=== PATIENT | female | born 1955 | race Caucasian/White ===

== ENCOUNTER → 2016-08-05 | Outpatient (CLI) | payer OTHER ==
--- NOTE | 2016-08-05 17:12 | US ---
Right Breast Ultrasound Indication: Palpable lump outer right breast. Due for screening mammography. Technique: The outer right breast was scanned with a high-resolution linear transducer by the sonogra pher and ct. Correlation made with mammograms and targeted physical exam. Findings: A benign well circumscribed 4 mm cyst in the outer right breast 9:30 position 2 cm from the nipple corresponds to the palpable lump and the partially obscured nodular asymmetry on the mammogra ms. No underlying mass or architectural distortion. Impression: Palpable lump corresponds to a benign 4 mm cyst in the outer right breast. BI-RADS 2: Benign finding. Recommendation: Clinical follow-up. Routine mammographic screening due in July 2017. The negative results and recommendations were discussed with the patient at time of study completion.
--- NOTE | 2016-08-06 09:20 | MA ---
Bilateral Digital Diagnostic Mammogram, with Tomosynthesis Indication: Palpable lump outer right breast. Technique: Bilateral 2D CC and true lateral views of the right breast. Bilateral digital breast vega osynthesis was performed in the MLO projection, with reconstruction at 1.0-mm slice thickness and com posite MLO views reconstructed. This examination is processed by the [facility] computer aided detection s ystem. Comparison: May 2012, May 2011, and April 2010. Breast Density: Type C. Findings: CAD was reviewed. A 4-mm partially obscured nodular asymmetry present in the outer right breast 9 o'clock position in the region of the palpable abnormality. The right and left mammograms a re otherwise negative. Impressions 1. A 4-mm nodular asymmetry outer right breast. 2. BI-RADS 0: Needs additional imaging evaluation. Recommendation: Proceed with right breast ultrasound today to optimally characterize palpable lump a nd nodular asymmetry. [facility] will send a result letter to the patient. The patient's information is entered into a reminder system with a target due date for her next mammo gram. E:elizabeth
== END ==
LOC: FIMAGING 13:58
PROVIDERS: ATTEND Naturopath
DX: Z12.39 Encounter for other screening for malignant neoplasm of breast (principal); N60.01 Solitary cyst of right breast
CPT/HCPCS: G0204; G0279

== ENCOUNTER 2016-09-09 07:13 | Day surgery (SDC) | payer OTHER ==
[2016-09-09] MEDS ORDERED: PROPOFOL/EMULSION 500 MG/50 ML BOTTLE IV ONE (08:51)
--- NOTE | 2016-09-09 10:03 | GPN ---
[f rep st] PROCEDURE NOTE PREPROCEDURE DIAGNOSIS: History of colon polyps. POSTPROCEDURE DIAGNOSIS: Poor preparation. PROCEDURE PERFORMED: Colonoscopy including terminal ileum. MEDICATIONS: Monitored anesthesia care. INDICATIONS: The patient is a 61-year-old female with a history of tubulovillous adenoma, polyp vanessa t was small, however 3-year colonoscopy followup for surveillance was recommended. She is here for her 3-year surveillance colonoscopy. The risks and benefits of the procedure were discussed with e patient. Consent obtained. Risks include not limited to, bleeding, perforation, risks associated with sedation. The patient is ASA class 2. PROCEDURE: The pediatric colonoscope was advanced into the terminal ileum which appeared normal. T here was stool throughout the entire colon more on the right side of the colon precluding visualizat ion of the colonic wall. Approximately 30% of the colon wall was not visualized. No polyps were se en. Retroflexed views in the rectum were normal. IMPRESSION: Poor colonoscopy preparation. Inability to visualize polyps less than 1 cm in size. T he base of the cecum could not be visualized at all secondary to stool. RECOMMENDATIONS: 1. Discharge home with escort. 2. Advance diet as tolerated. 3. Repeat surveillance colonoscopy recommended at the next available appointment with more extensiv e bowel preparation. I will review her bowel preparation. If she took the MiraLAX prep, we can giv e her GoLYTELY prep. If she took a Suprep or GoLYTELY prep, she will need a 2-day prep. Thank you for allowing me to participate in the care of your patient. Please do not hesitate to jarrett schafer with questions. /[id number]/MODL
== END 2016-09-09 10:40 | disposition home or self-care (01) ==
LOC: FSGY 07:13
PROVIDERS: ATTEND Internal Medicine Gastroenterology
PROC: 0DJD8ZZ Inspection of Lower Intestinal Tract, Via Natural or Artificial Opening Endoscopic (ICD-10-PCS; principal; 2016-09-09 08:45)
DX: Z12.11 Encounter for screening for malignant neoplasm of colon (principal)
CPT/HCPCS: J2704

== ENCOUNTER → 2016-10-13 | Outpatient (CLI) | payer OTHER | LOC: FIMAGING 15:57 | PROVIDERS: ATTEND Naturopath | DX: R20.2 Paresthesia of skin (principal); R51 Headache; R41.82 Altered mental status, unspecified; R93.0 Abnormal findings on diagnostic imaging of skull and head, not elsewhere classified; J32.9 Chronic sinusitis, unspecified ==

== ENCOUNTER → 2016-10-22 | Outpatient (CLI) | payer OTHER | LOC: FIMAGING 13:33 | PROVIDERS: ATTEND Naturopath | DX: R93.8 Abnormal findings on diagnostic imaging of other specified body structures (principal); N84.0 Polyp of corpus uteri ==

== ENCOUNTER 2016-10-28 07:44 | Day surgery (SDC) | payer OTHER ==
[2016-10-28] MEDS ORDERED: PROPOFOL/EMULSION 500 MG/50 ML BOTTLE IV ONE (09:30)
--- NOTE | 2016-10-28 10:18 | GOP ---
[f rep st] OPERATIVE REPORT DATE OF OPERATION: SURGEON: Nico Eldridge MD ANESTHESIA: Monitored anesthesia care. PREOPERATIVE DIAGNOSIS: Poor colon prep, history of colon polyps. POSTOPERATIVE DIAGNOSIS: Colon polyps, status post removal. PROCEDURE PERFORMED: FINDINGS: INDICATIONS: The patient is a 61-year-old female, with a history of prior tubulovillous adenoma, wh ich was removed, here for a colonoscopy. She recently had a poor prep colonoscopy, this is a repeat surveillance colonoscopy. The risks and benefits of the procedure are discussed with the patient, consent obtained. Risks include, but not limited to, bleeding, perforation, risks associated with s edation. The patient is ASA class 2. DESCRIPTION OF PROCEDURE: PROCEDURE: Colonoscopy with snare polypectomy. PROCEDURE: The adult colonoscope was advanced to the terminal ileum, which appeared normal. The il eocecal valve, appendiceal orifice and cecum appeared normal. There is scattered melanosis coli thr oughout the right colon. A 7 mm polyp was removed from the ascending colon with cold snare polypect valente. The polyp was flat. The polyp was removed in 1 piece. The hepatic flexure, transverse colon, splenic flexure, descending colon, sigmoid colon, and rectum were normal. Retroflexed views in the rectum were normal. IMPRESSION: 1. Melanosis coli. 2. Ascending colon polyp, status post removal using cold snare polypectomy. RECOMMENDATIONS: 1. Discharged home with escort. 2. Advance diet as tolerated. 3. Followup the final pathology results, results available within 10 days. 4. Repeat colonoscopy in 5 years given history of tubovillous adenoma 3 years ago, and polyp remove d today. 5. Continue current medications. Thank you for allowing me to participate in the care of your patient. Please do not hesitate to jarrett hanh with questions. /[id number]/MODL
== END 2016-10-28 10:53 | disposition home or self-care (01) ==
LOC: FSGY 07:44
PROVIDERS: ATTEND Internal Medicine Gastroenterology
PROC: 0DBK8ZX Excision of Ascending Colon, Via Natural or Artificial Opening Endoscopic, Diagnostic (ICD-10-PCS; principal; 2016-10-28 09:30)
DX: Z86.010 Personal history of colon polyps (principal); D12.2 Benign neoplasm of ascending colon; K63.89 Other specified diseases of intestine
CPT/HCPCS: J2704

== ENCOUNTER 2016-11-18 06:21 | Day surgery (SDC) | payer OTHER ==
[2016-11-18] MEDS ORDERED: LIDOCAINE 1% 2 ML INJ ONE (06:49)
[2016-11-18] MEDS ORDERED: LR 1,000 ML IV ONE (07:06)
[2016-11-18] MEDS ORDERED: LIDOCAINE 1% 5 ML SDV ID PRN (07:06)
[2016-11-18] MEDS ORDERED: LIDO/EPI 1% **for epidural** 30 ML SDV ONE (07:18)
[2016-11-18] MEDS ORDERED: fentaNYL 100 MCG/2 ML INJ ONE ×2 (08:08→08:59)
[2016-11-18] MEDS ORDERED: LIDOCAINE 2% 5 ML SDV ONE (08:09)
[2016-11-18] MEDS ORDERED: PROPOFOL/EMULSION 500 MG/50 ML BOTTLE IV ONE (08:09)
[2016-11-18] MEDS ORDERED: DEXAMETHASONE 4 MG/ML VIAL ONE (08:15)
[2016-11-18] MEDS ORDERED: KETOROLAC 30 MG/1 ML SDV ONE (08:46)
--- NOTE | 2016-11-18 10:55 | GOP ---
[f rep st] OPERATIVE REPORT DATE OF OPERATION: 11/18/2016 SURGEON: Amber Hidalgo MD ANESTHESIA: General with LMA. ANESTHESIOLOGIST: Paola Shah MD. PREOPERATIVE DIAGNOSIS: 1. Postmenopausal bleeding. 2. Thickened endometrial stripe, suggestive of endometrial polyp. POSTOPERATIVE DIAGNOSIS: 1. Postmenopausal bleeding. 2. Thickened endometrial stripe, suggestive of endometrial polyp. PROCEDURE PERFORMED: Hysteroscopic polypectomy. FINDINGS: Very large endometrial polyp, probably about 1.5 to 2 cm. Otherwise, normal tubal ostia, normal endometrium, and normal cervix. ESTIMATED BLOOD LOSS: Minimal. INDICATIONS: The patient is a 61-year-old, referred by Dr. Shila Lu for postmenopausal bleed ing and thickened endometrial stripe. She is on bioidentical hormone therapy and has recently had h er estrogen amount increased. Needs hysteroscopic evaluation for further evaluation of thickened en dometrium and postmenopausal bleeding. DESCRIPTION OF PROCEDURE: With informed consent signed, patient taken to the operating room, placed under general anesthesia, placed in low dorsal lithotomy position, prepped and draped in the usual sterile fashion. Bladder previously emptied. Tenaculum placed on the anterior lip of the cervix, c ervix dilated to 9.5 mm, and hysteroscope placed, using normal saline as the filling medium. Findin gs as noted above. Menjivar [employer] Tru[employer] morcellator placed into the hysteroscope and resection of the noted polyp done without complication. It did appear to arise from the left side of the pos terior wall of the fundus. Once it was completely resected, the hysteroscope was removed. Net flui d deficit was 200 cc. The patient was placed in supine position, awakened in the operating room, ta kristyn to the recovery room in stable condition. Tolerated procedure well. COMPLICATIONS: None. Copy requested to: Shila Lu /[id number]/MODL
== END 2016-11-18 10:40 | disposition home or self-care (01) ==
LOC: FSGY 06:21
PROVIDERS: ATTEND Obstetrics & Gynecology Gynecology
PROC: 0UB98ZX Excision of Uterus, Via Natural or Artificial Opening Endoscopic, Diagnostic (ICD-10-PCS; principal; 2016-11-18 08:15)
DX: N95.0 Postmenopausal bleeding (principal); N84.0 Polyp of corpus uteri
CPT/HCPCS: 58558; C1782; J1100; J1885; J2704; J3010

== ENCOUNTER 2018-07-06 11:32 | Emergency (ER) | payer OTHER ==
[2018-07-06 12:31] LABS: PLATELET COUNT 234 10^3/uL (150-400)
[2018-07-06] MEDS ORDERED: ONDANSETRON 4 MG/2 ML VIAL IVP ONE (12:46)
[2018-07-06] MEDS ORDERED: ONDANSETRON 4 MG/2 ML VIAL ONE (12:47)
--- NOTE | 2018-07-06 13:12 | EDPHY ---
HPI/HX/ROS/PE/MDM Narrative: CLINICAL IMPRESSION: Closed head injury, headache, episodic lightheadedness, dizziness ASSESSMENT/PLAN: 63-year-old female with no reported past medical history presents to the emergency department after she had a presumed syncopal episode at 4:00 a.m. This morning striking her head on a hardwood floor. Patient presents to the ED with complaints of headache, episodic lightheadedness and dizziness. She has no current complaints of vertigo nausea, vomiting, upper extremity radiculopathy , seizure activity, back or chest wall pain. She is complaining of anterior neck pain. CT head and cervical spine negative for acute intracranial bleeding or fracture. Degenerative changes noted. Given her reports of mild"spinning" at onset of symptoms and persistent dizziness, case was discussed with Dr. Akhtar and CTA head and neck were obtained. These were read by Radiology as negative for acute abnormality, vertebral artery dissection or thrombus. Patient received IV Reglan, and Benadryl for her headache, required 2nd dose of Benadryl and Ativan for mild tremors and anxiety. On reassessment she was improved, she had a normal initial and repeat neurological exam with no limb ataxia or abnormal cerebellar findings. 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 DIFFERENTIAL DX: Differential diagnosis for headache includes but not limited to syncope, ACS, electrolyte imbalance, metabolic disturbance, subarachnoid hemorrhage, migraine headache, migraine variant headache, tension headache and infectious causes such as meningitis, pharyngitis and sinusitis. ED PROCEDURES: See imaging and lab results below ED COURSE: 1:10 p.m.: Discussed with radiologist Dr. La. No acute bleeding or fracture identified on CT head and cervical spine. She has central canal narrowing at C5-6 likely secondary to DJD. EKG reviewed with Dr. Akhtar. Normal sinus rhythm, no acute ST or T-wave changes. Labs show no evidence of electrolyte imbalance, severe dehydration, metabolic disturbance, normal troponin. 1:20 p.m.: CT results discussed with the patient and her significant other. She states she continues to have a headache. Repeat cerebellar functions continued to be normal. Patient states that she was woken from sleep at 4:00 a.m. Feeling dizzy as though she was going to pass out and thought she was dehydrated which prompted her to get up to get water. She continues to feel dizzy and off balance 2:20 p.m.: CTA results discussed with Radiology, mild narrowing of bilateral distal vertebral arteries with no evidence of dissection or thrombus. Results reviewed with patient. She is feeling anxious and jittery from Reglan, additional Benadryl and small amount of Ativan ordered. 3:00 p.m.: Patient reassessed after IV analgesics and she is feeling improved. Less tremulous. Able to road test with steady gait. Will plan to discharge home with PCP follow-up. 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 CHIEF COMPLAINT: Closed head injury, possible syncope HPI: 63-year-old female with no reported past medical history presents to the emergency department with her significant other after she had a possible syncopal episode at 4:00 a.m. This morning. Patient reports he was lying in bed , was woken by feeling dizzy and lightheaded and thought she was dehydrated. She got out of bed, attempted to walk to the kitchen to get a glass of water and the next thing she knew she was on the ground. Her significant other awoke immediately and states the patient was awake when he got to her. She remembers feeling like she was lightheaded in going to pass out. She went back to bed, applied ice to her head, but when she had a persistent headache she came to the ED. She normally does not struggle with migraines or chronic headaches. She states when she 1st fell symptoms in bed this morning she had some spinning sensations but she now complains only of being off balance. No associated vision changes or hearing changes. No nausea or vomiting. No seizure activity. She is complaining of neck pain but does not want a C-collar placed and denies upper extremity numbness or weakness. She reports her neck pain feels"like someone is squeezing my neck". No prior neck injury or surgery, recent chiropractic adjustment or massage therapy. She took 3 ibuprofen prior to arrival PMH: None reported Pertinent Past Surgical History: None reported Family History: None reported Social History: nonsmoker REVIEW OF SYSTEMS: All other systems negative Constitutional: No fever, no chills, appetite change. Eyes: No discharge, vision change ENT: No sore throat, congestion, ear pain. Cardiovascular: No chest pain, no palpitations. Respiratory: No cough, no shortness of breath. Gastrointestinal: No abdominal pain, no vomiting, diarrhea. Genitourinary: No hematuria, dysuria, flank pain, pelvic pain Musculoskeletal: No back pain, positive for neck pain, no joint swelling, joint pain, myalgias. Skin: No rashes, color change. Neurological: [Positive for headache, dizziness, PHYSICAL EXAM: General Appearance: Alert, oriented, appropriate, cooperative, NAD, well hydrated, non-toxic appearing, very thin, VSS, no hypoxia, vital signs stable HEENT: TMs are clear bilaterally no perforation or FB, no injection, no evidence of serous or mucopurulent otitis. No hemotympanum or Becerra sign, no palpable scalp hematoma, contusion or laceration. Oropharynx clear is no erythema or exudates, no tonsillar hypertrophy or asymmetry. Dentition without abnormality. Eyes: PERRLA, no acute vision change, nystagmus, swelling, discharge, pain or photosensitivity. Conjunctiva pink, no pallor or injection Neck: Supple, nontender, no lymphadenopathy, no midline pain, FROM, no meningismus, pain to anterior SCM muscle, right greater than left. Respiratory: There are no retractions, lungs are clear to auscultation. No chest wall or rib pain Cardiac: Regular rate and rhythm, no murmurs or gallops. Gastrointestinal: Abdomen is soft, nontender, bowel sounds normal, no masses/ hernia, no rigidity, guarding or focal peritoneal findings. Neurological: Alert and oriented x 3, CN 2-12 grossly intact, no limb ataxia, NIH score of 0, DTR's intact, normal sensation and strength Skin: Warm, dry, no rashes, no nodules on palpation. Musculoskeletal: Extremities are symmetrical, full range of motion, no tenderness, deformity, swelling, or erythema. Psychiatric: Patient is oriented X 3, there is no agitation. MEDICAL DECISION MAKING: Patient was seen independently. Secondary supervising physician at time of evaluation was Dr. Akhtar. Diagnosis: Closed head injury, episodic lightheadedness, dizziness, headache. New, requires workup Summary: See Assessment and Plan for summary of ED visit Clinical lab tests: ordered / reviewed. Independent visualization of images, tracing, or specimens: Yes. Decision to obtain medical records or history from someone other than the patient: Patient's significant other Discussed patient with another provider: Dr. Akhtar, radiology Patient Progress: Improved. (Jose Lira) MDM: The patient was evaluated and managed by the Physician Assistant Press Operator Offset. I discussed the patient's presentation and course with the physician assistant professor sculpture and agree with the evaluation. My co-signature indicates that I have reviewed this chart and I agree with the findings and plan of care as documented. I am the secondary supervising physician. (Rashida Akhtar) - Data Points Laboratory Results: Laboratory Results 07/06/18 11:50 07/06/18 11:50 Medications Given: Discontinued Medications Diphenhydramine HCl (Benadryl Injection) 25 mg IVP EDNOW ONE Stop: 07/06/18 13:41 Last Admin: 07/06/18 14:00 Dose: 25 mg Diphenhydramine HCl (Benadryl Injection) 25 mg IVP EDNOW ONE Stop: 07/06/18 14:26 Last Admin: 07/06/18 14:35 Dose: Not Given Sodium Chloride (Ns) 1,000 mls @ 0 mls/hr IV ONCE ONE; Wide Open PRN Reason: Protocol Stop: 07/06/18 13:41 Last Admin: 07/06/18 14:02 Dose: 1,000 mls Lorazepam (Ativan Injection) 0.5 mg IVP EDNOW ONE Stop: 07/06/18 14:27 Last Admin: 07/06/18 14:34 Dose: 0.5 mg Meclizine HCl (Meclizine Hcl) 25 mg PO ONCE ONE Stop: 07/06/18 13:41 Last Admin: 07/06/18 14:01 Dose: 25 mg Metoclopramide HCl (Reglan Injection) 10 mg IVP EDNOW ONE Stop: 07/06/18 13:41 Last Admin: 07/06/18 13:59 Dose: 10 mg Ondansetron HCl (Zofran) 4 mg IVP EDNOW ONE Stop: 07/06/18 12:47 Last Admin: 07/06/18 12:49 Dose: 4 mg Point of Care Test Results: Chemistry 07/06/18 11:55 POC Troponin I 0.01 ng/mL ng/mL (0.00-0.08) General Time Seen by Provider: 07/06/18 11:53 Initial Vital Signs: Initial Vital Signs Temperature (C) 36.3 C 07/06/18 11:36 Heart Rate 72 07/06/18 11:36 Respiratory Rate 17 07/06/18 11:36 Blood Pressure 118/75 07/06/18 11:36 O2 Sat (%) 98 07/06/18 11:36 O2 Delivery Mode Room Air Allergies/Adverse Reactions: lactose Allergy (Verified 07/06/18 11:33) Abdominal Cramping Home Medications: Medication Instructions Recorded Multivitamin (*) 1 tab DAILY 08/08/16 Estradiol 1 MG (*) 1 tab DAILY 11/14/16 Progesterone 1 tab DAILY 11/14/16 TESTOSTERONE 1 tab DAILY 11/14/16 Departure - Departure Disposition: Home, Routine, Self-Care Clinical Impression: Concussion, Dizziness, Episodic lightheadedness Condition: Good Instructions: Concussion (ED), Post Concussion Syndrome (ED), Dizziness (ED) Additional Instructions: DISCHARGE INSTRUCTIONS FROM YOUR DOCTOR Thank you for visiting our emergency department today. Please keep in mind that discharge from the emergency department does not mean that there is nothing wrong - it simply means that we have not identified an emergency condition that requires further evaluation or treatment in the hospital. You should always plan to follow up with primary care for re-evaluation of your condition in the next 2-3 days. If you have been referred to a specialist, please call as soon as possible (today or tomorrow) to schedule your follow up appointment at the appropriate time. You had a normal noncontrast CT scan of the head and cervical spine showing only degenerative changes of the cervical spine. CT angiogram of the head and neck showed no evidence of arterial dissection or thrombus. Labs were reassuring, no evidence of anemia, electrolyte imbalance, severe dehydration. You likely suffered a mild concussion and you may experience intermittent headache, dizziness, nausea, confusion, a foggy sensation, for the next week to 2 weeks. We strongly recommend he follow up with her primary care doctor in the next 1-2 days to recheck. Please avoid or limit exposure to screen time and do not participate in any sports where you could hit her head until cleared by primary care. You may use Dramamine [id number] for dizziness if needed. It is okay to use Tylenol or ibuprofen for headache. Please stay well hydrated and eat regular meals. Please return to the emergency department for severe headache, seizure activity, altered mental status, unexplained vomiting, worsening neck pain with numbness or weakness to the arms, or any other concerns. People present with illnesses and injuries in different ways, and it is always possible that we have missed something. You may always return for re-evaluation if symptoms worsen or if they are not improving or if you develop new/different symptoms. Again, thank you for choosing our emergency department. We hope that you feel better. Referrals: ARISTIDES DELEON [Primary Care Provider] - As per Instructions
[2018-07-06] MEDS ORDERED: MECLIZINE HCL 25 MG TAB PO ONE (13:40)
[2018-07-06] MEDS ORDERED: METOCLOPRAMIDE 10 MG/2 ML VIAL IVP ONE (13:40)
[2018-07-06] MEDS ORDERED: NS 1,000 ML IV ONE (13:40)
[2018-07-06] MEDS ORDERED: IOPAMIDOL (ISOVUE 370) 100 ML BTL IV ONE (13:43)
[2018-07-06] MEDS ORDERED: LORazepam 2 MG/ML INJ IVP ONE (14:26)
[2018-07-06 15:15] VITALS: BP 120/65
--- NOTE | 2018-07-06 22:13 | CPEKG ---
Test Reason : OPEN Blood Pressure : / mmHG Vent. Rate : 070 BPM Atrial Rate : 068 BPM P-R Int : 183 ms QRS Dur : 096 ms QT Int : 412 ms P-R-T Axes : 080 077 048 degrees QTc Int : 445 ms Sinus rhythm Probable left ventricular hypertrophy Confirmed by Rashida Akhtar ([id number]) on 07/06/2018 10:12:40 PM Referred By: Confirmed By:Rashida Akhtar
== END 2018-07-06 15:19 | disposition home or self-care (01) ==
DX: S06.0X0A Concussion without loss of consciousness, initial encounter (principal); W01.198A Fall on same level from slipping, tripping and stumbling with subsequent striking against other object, initial encounter; E86.9 Volume depletion, unspecified
CPT/HCPCS: 84484-ER; 96374; J1200; J2060; J2405; J2765; Q9967

== ENCOUNTER → 2018-09-02 | Outpatient (CLI) | payer OTHER | LOC: FIMAGING 15:31 | PROVIDERS: ATTEND Obstetrics & Gynecology Gynecology | DX: Z12.31 Encounter for screening mammogram for malignant neoplasm of breast (principal); Z80.3 Family history of malignant neoplasm of breast ==